=== PATIENT | male | born 1965 | race Asian ===

== ENCOUNTER 2018-01-23 16:32 | Emergency (ER) | payer BC ==
[~2018-01-23] VITALS: Ht 157.5 cm; Wt 56.8 kg
[2018-01-23 16:35] VITALS: TEMP 97.5
[2018-01-23] MEDS ORDERED: 00186-0372-20 IH (16:46)
[2018-01-23 16:58] LABS: BASO # 0.1 (0.0-0.2); EOS # 0.5 (0.0-0.7); EOS % 3.8 % (0-4.0); GRAN # 5.7 (1.4-6.5); GRAN % 45.2 % (42.2-75.2); HEMATOCRIT 48.6 % (42.0-52.0); HEMOGLOBIN 17.7 g/dl (13.5-18.0); LYMPH # 5.3 (1.2-3.4); LYMPH % 42.5 % (20.0-51.0); MEAN CELL VOLUME 91 fl (80.0-100.0); MEAN CORPUSCULAR HEMOGLOBIN 33 pg (27.0-31.0); MEAN CORPUSCULAR HGB CONC 36 g/dl (33.0-37.0); MEAN PLATELET VOLUME 9.3 fl (7.4-10.4); MONO # 0.9 (0.1-0.6); MONO % 6.9 % (1.7-9.3); PLATELET COUNT 282 K/mm3 (130-400); RED BLOOD COUNT 5.36 M/mm3 (4.20-5.60); REDCELL DISTRIBUTION WIDTH-CV 12.6 % (11.5-14.5)
[2018-01-23 17:09] LABS: ALANINE AMINOTRANSFERASE 73 U/L (21-72); ALBUMIN 4.3 gm/dL (3.5-5.0); ALKALINE PHOSPHATASE 86 U/L (50-136); ANION GAP 11 mmol/L (7-16); AST,SGOT 46 U/L (15-37); BILIRUBIN,TOTAL 0.6 mg/dL (0.0-1.0); BLOOD UREA NITROGEN 11 mg/dL (9-20); CALCIUM 9.3 mg/dL (8.4-10.2); CARBON DIOXIDE 28 mmol/L (22-30); CHLORIDE 103 mmol/L (98-107); CREATININE, serum 1.12 mg/dL (0.66-1.25); GLUCOSE 129 mg/dL (74-106); LIPASE 175 U/L (23-300); POTASSIUM 3.1 mmol/L (3.4-5.0); SODIUM 142 mmol/L (137-145); TOTAL PROTEIN 7.9 gm/dL (6.4-8.2)
[2018-01-23 17:10] LABS: C-REACTIVE PROTEIN < 0.5 mg/dL (0.0-0.9)
[2018-01-23 17:22] LABS: TROPONIN-I < 0.012 ng/mL (0.000-0.034)
[2018-01-23 17:43] LABS: INR 0.8 (0.8-3.0); PROTHROMBIN TIME 9.5 SECONDS (9.7-12.8)
[2018-01-23 17:45] LABS: PARTIAL THROMBOPLASTIN TIME 29.4 SECONDS (26.0-37.0)
[2018-01-23 18:27] VITALS: BP 102/75; PULSE 90
== END 2018-01-23 18:37 | disposition short-term general hospital (02) ==
LOC: COL.ER 16:32
PROVIDERS: Emergency Medicine
DX: I21.3 ST elevation (STEMI) myocardial infarction of unspecified site (principal)
CPT/HCPCS: J1644; J2270; J2405; J3101; J7030

== ENCOUNTER 2018-01-31 14:54 | Outpatient (RCR) | payer BC ==
[~2018-01-31 14:54] MED LIST: 00186-0372-20 IH
== END 2018-02-07 13:27 | disposition home or self-care (01) ==
LOC: COL.CR 14:54
DX: Z48.812 Encounter for surgical aftercare following surgery on the circulatory system (principal); Z95.5 Presence of coronary angioplasty implant and graft; I21.9 Acute myocardial infarction, unspecified